=== PATIENT | female | born 1990 | race African-American/Black ===

== ENCOUNTER 2024-04-02 14:20 | Emergency (ER) | payer OTHER ==
[~2024-04-02] VITALS: Ht 162.6 cm; Wt 81.8 kg
[2024-04-02 15:08] LABS: BASOPHILS % (AUTO) 0.6 % (0.0-2.0); HEMATOCRIT 23.4 % (36-46); LYMPHOCYTES # (AUTO) 1.3 K/uL (1.0-4.8); LYMPHOCYTES % (AUTO) 37.9 % (22.0-44.0); MEAN CORPUSCULAR HEMOGLOBIN 16.4 pg (26.0-34.0); MEAN CORPUSCULAR HGB CONC 28.3 G/dL (31.0-37.0); MEAN CORPUSCULAR VOLUME 58 fL (80-100); MONOCYTES # (AUTO) 0.4 K/uL (0.1-1.0); MONOCYTES % (AUTO) 11.3 % (2.0-9.0); NEUTROPHILS # (AUTO) 1.6 K/uL (1.8-7.7); NEUTROPHILS % (AUTO) 45.2 % (40.0-70.0); PLATELET COUNT (AUTO) 281 K/uL (150-450); RED BLOOD CELL COUNT(AUTO) 4.03 MIL/uL (4.00-5.20); RED CELL DISTRIBUTION WIDTH 21.8 % (11.5-14.5); WHITE BLOOD COUNT (AUTO) 3.6 K/uL (4.5-11.0)
[2024-04-02 15:11] LABS: HEMOGLOBIN 6.6 g/dL (12.0-16.0)
[2024-04-02 15:14] VITALS: BP 123/78; PULSE 68; RESP 14; TEMP 98.6; O2SAT 96
[2024-04-02 15:14] LABS: ANION GAP 9 mmol/L (8-16); CALCIUM, TOTAL 8.6 mg/dL (8.8-10.5); CARBON DIOXIDE 29 mmol/L (22-29); CHLORIDE 100 mmol/L (98-107); CREATININE 0.79 mg/dL (0.60-1.30); GLOMERULAR FILTR. RATE CALC > 60 mL/min (>60); GLUCOSE,RANDOM 82 mg/dL (70-110); POTASSIUM 3.8 mmol/L (3.5-5.1); SODIUM SERUM 138 mmol/L (136-145); UREA NITROGEN, BLOOD 12 mg/dL (7-18)
[2024-04-02] MEDS: ACETAMINOPHEN 325 MG TABLET PO ONE (15:20)
[2024-04-02 15:21] LABS: INR 1.1 (0.9-1.1); PROTHROMBIN TIME 11.3 SEC (9.4-11.6)
[2024-04-02] MEDS ORDERED: SERT-440 PO (15:32)
[2024-04-02] MEDS ORDERED: LEVO200C PO (15:32)
[2024-04-02] MEDS ORDERED: APIX5TAB PO (15:32)
[2024-04-02] MEDS ORDERED: BUSP5TAB20 PO (15:32)
[2024-04-02] MEDS ORDERED: PRAZ2 PO (15:32)
[2024-04-02] MEDS ORDERED: TRAZ-252 PO (15:32)
[2024-04-02] MEDS ORDERED: POLY510P31 PO (15:32)
[2024-04-02] MEDS ORDERED: ACAM333T7 PO (15:32)
[2024-04-02] MEDS ORDERED: FERR-89 PO (15:32)
[2024-04-02 15:36] LABS: RBC MORPHOLOGY COMMENT ABNORMAL RBC MORPH
[2024-04-02 15:44] LABS: PATHOLOGY REVIEW, DIFF YES
== END 2024-04-02 16:31 | disposition left against medical advice (07) ==
LOC: EMS 14:24
DX: D64.9 Anemia, unspecified (principal); R06.02 Shortness of breath
CPT/HCPCS: 80048; 85025; 85610; 85730; 86850; 86900; 86901; 86923; 93005; 99284

== ENCOUNTER 2024-04-02 17:29 | Emergency (ER) | payer OTHER ==
[~2024-04-02] VITALS: Ht 162.6 cm; Wt 81.8 kg
[2024-04-02] VITALS (10 sets, daily range): BP systolic 94–105; BP diastolic 50–63; PULSE 48–55; RESP 14–20; TEMP 98–98.7
[~2024-04-02 17:29] MED LIST: ACAM333T7 PO; APIX5TAB PO; BUSP5TAB20 PO; FERR-89 PO; LEVO200C PO; POLY510P31 PO; PRAZ2 PO; SERT-440 PO; TRAZ-252 PO
[2024-04-02] MEDS: DiphenhydrAMINE HCL 25 MG CAPSULE PO ONE (20:34)
[2024-04-03 00:20] VITALS: BP 97/58; PULSE 50; RESP 16; O2SAT 100
== END 2024-04-03 01:40 | disposition home or self-care (01) ==
LOC: EMS 17:29
DX: D64.9 Anemia, unspecified (principal); J45.909 Unspecified asthma, uncomplicated; Z88.0 Allergy status to penicillin; Z88.5 Allergy status to narcotic agent; Z88.8 Allergy status to other drugs, medicaments and biological substances
CPT/HCPCS: 99291; 36430; 86850; 86900; 86901; 86923; 36415; P9016